=== PATIENT | female | born 1955 | race Caucasian/White ===

== ENCOUNTER → 2022-08-31 11:06 | Outpatient (CLI) | payer MEDICARE, OTHER, SELFPAY | PROVIDERS: Visit Provider Nurse Practitioner Family | DX: R30.0 Dysuria (principal) | CPT/HCPCS: 87086 ==

== ENCOUNTER 2022-08-31 11:29 | Emergency (ER) | payer MEDICARE, OTHER, SELFPAY ==
[2022-08-31] VITALS (15 sets, daily range): BP systolic 124–175; BP diastolic 56–77; PULSE 65–79; RESP 16–22; TEMP 36.4; O2SAT 95–99
[2022-08-31] MEDS: SODIUM CHLORIDE 0.9% 1,000 ML 1000 ML IV (11:42)
--- NOTE | 2022-08-31 11:42 | ED.GENADULT ---
HPI - General Adult General Chief complaint: Diabetic Problem Stated complaint: sent from [facility]/ uti/high blood sugars Time Seen by Provider: 08/31/22 11:30 Source: patient Mode of arrival: Wheelchair Limitations: no limitations History of Present Illness HPI narrative: 67-year-old female. Is a diabetic. Has not been on insulin for the past 8-9 months. She states she was on insulin prior to that however she was able to maintain her blood sugars and her A1c just based on diet. She is visiting the area. Over the past couple days she has generally not felt very well. She is been having urinary frequency which is her symptoms for urinary tract infection. She also forgot to bring her blood sugar monitor with her so she went to the walk-in clinic. She was subsequently sent to the emergency department secondary to leukocyte esterase in her urine and elevated blood sugars. She denies chest pain or shortness of breath. No abdominal pain. Related Data Previous Rx's Medication Instructions Recorded blood sugar diagnostic (Accu-Chek #50 ea 08/31/22 Fifi Plus test strips) blood-glucose meter (Accu-Chek #1 ea 08/31/22 Fifi Plus Meter) cephalexin 500 mg capsule 500 mg PO QID 5 days #20 caps 08/31/22 lancets #100 ea 08/31/22 vancomycin 250 mg capsule 500 mg PO QID 15 days #120 caps 08/31/22 Allergies Allergy/AdvReac Type Severity Reaction Status Date / Time CLINT Inhibitors Allergy Verified 08/31/22 11:59 ampicillin Allergy Verified 08/31/22 11:59 cefepime Allergy Verified 08/31/22 11:59 Penicillins Allergy Verified 08/31/22 11:59 Sulfa (Sulfonamide Allergy Verified 08/31/22 11:59 Antibiotics) vancomycin AdvReac Verified 08/31/22 11:59 Review of Systems Review of Systems ROS Unobtainable: All systems reviewed & are unremarkable except as noted in HPI and below Exam Initial Vital Signs Initial Vital Signs: Vital Signs Pulse Oximetry 95 08/31/22 11:34 Const General: cooperative, comfortable and No ill appearing HENNY Head: normal to inspection and normocephalic Resp Effort & Inspection: normal respiratory effort Auscultation: clear to auscultation bilaterally Cardio Rate: regular rate Skin Other: Bilateral [id number] amputations Neuro General: patient alert, patient awake, patient oriented x3 and moves all extremities Extrem General: normal to inspection and capillary refill normal Course Orders Ordered: ED Orders 08/31/22 11:39 Complete Blood Count AUTO DIFF Stat Comprehensive Metabolic Panel Stat Ketones (Beta-Hydroxybutyrate) Stat Lipase Stat Magnesium Stat Phosphorous Stat 08/31/22 11:49 Urine Microscopic Stat 08/31/22 12:27 VBG [Venous Blood Gas] Stat 08/31/22 14:14 BMP [Basic Metabolic Panel] Stat Discontinued Medications Cephalexin HCl (Cephalexin 250 Mg Capsule) 500 mg PO NOW ONE Stop: 08/31/22 13:28 Last Admin: 08/31/22 13:38 Dose: 500 mg Documented By: AT Sodium Chloride (Normal Saline 0.9%) 1,000 mls @ 1,000 mls/hr IV BOLUS ONE Stop: 08/31/22 12:30 Last Infusion: 08/31/22 12:39 Dose: 0 mls/hr Documented By: Admin: 08/31/22 11:42 Dose: 1,000 mls/hr Documented By: TACO Lactated Ringer's (Lactated Ringers) 1,000 mls @ 1,000 mls/hr IV BOLUS ONE Stop: 08/31/22 13:38 Last Infusion: 08/31/22 13:44 Dose: 0 mls/hr Documented By: Admin: 08/31/22 12:43 Dose: 1,000 mls/hr Documented By: AUTUMN Insulin Human Regular (Insulin Regular 100 Unit/Ml 3 Ml Vial) 10 unit IV NOW ONE Stop: 08/31/22 13:28 Last Admin: 08/31/22 13:37 Dose: 10 unit Documented By: AT Co-signed By: AUTUMN Vital Signs Vital signs: Vital Signs - 8 hr 08/31/22 11:38 08/31/22 11:34 08/31/22 11:35 Temperature 97.6 F Pulse Rate 70 Respiratory Rate 16 Blood Pressure 155/67 H 155/67 H Pulse Oximetry 99 95 Oxygen Delivery Method Room Air 08/31/22 11:35 08/31/22 12:00 08/31/22 12:01 Temperature Pulse Rate 74 77 73 Respiratory Rate 18 22 Blood Pressure Pulse Oximetry 96 95 95 Oxygen Delivery Method Room Air Room Air 08/31/22 12:01 08/31/22 12:30 08/31/22 12:31 Temperature Pulse Rate 69 72 Respiratory Rate Blood Pressure 155/67 H Pulse Oximetry 96 97 Oxygen Delivery Method Room Air 08/31/22 12:31 08/31/22 13:00 08/31/22 13:00 Temperature Pulse Rate 65 Respiratory Rate 18 Blood Pressure 156/69 H 147/66 H Pulse Oximetry 99 Oxygen Delivery Method Room Air 08/31/22 13:32 08/31/22 13:33 08/31/22 13:33 Temperature Pulse Rate 73 70 Respiratory Rate 18 Blood Pressure 170/75 H Pulse Oximetry 98 97 Oxygen Delivery Method Room Air 08/31/22 14:00 08/31/22 14:01 08/31/22 14:01 Temperature Pulse Rate 79 78 Respiratory Rate Blood Pressure 153/67 H Pulse Oximetry 99 98 Oxygen Delivery Method 08/31/22 14:30 08/31/22 14:30 08/31/22 15:00 Temperature Pulse Rate 77 67 Respiratory Rate Blood Pressure 175/77 H Pulse Oximetry 98 98 Oxygen Delivery Method 08/31/22 15:01 08/31/22 15:01 Temperature Pulse Rate 67 Respiratory Rate 16 Blood Pressure 124/56 L Pulse Oximetry 97 Oxygen Delivery Method Room Air Medical Decision Making Lab Data 08/31/22 11:39 08/31/22 14:14 Labs: Lab Results 08/31/22 08/31/22 08/31/22 Range/Units 11:39 11:39 11:39 WBC 8.3 (4.5-11.0) X10^3/uL RBC 3.65 L (4.0-5.2) X10^6/uL Hgb 10.6 L (12.0-16.0) g/dL Hct 32.2 L (36-46) % MCV 88.2 (80-100) fL MCH 29.0 (26-34) PG MCHC 32.9 (30-36) % RDW 14.7 (11.6-14.8) % Plt Count 330 (150-400) X10^3/uL Neut % (Auto) 80.3 H (50-75) % Lymph % (Auto) 5.6 L (25-40) % [place] % (Auto) 8.1 (3-14) % Eos % (Auto) 5.3 H (2-4) % Baso % (Auto) 0.7 (0-2) % Neut # (Auto) 6600 (0443-7414) /uL Lymph # (Auto) 500 L (0214-9934) /uL [place] # (Auto) 700 (0-900) /uL Eos # (Auto) 400 (0-450) /uL Baso # (Auto) 100 (0-100) /uL VBG pH (7.33-7.43) VBG pCO2 (45-50) mmHg VBG pO2 (35-45) mmHg VBG HCO3 (24-28) mmol/L VBG Total CO2 (24-29) mmol/L VBG O2 Saturation (70-75) % VBG Base Excess (0-4) mmol/L FiO2 Sodium 128 L (137-145) mmol/L Potassium 5.9 H (3.4-5.1) mmol/L Chloride 99 (98-107) mmol/L Carbon Dioxide 15 L (22-32) mmol/L BUN 52 H (7-17) mg/dL Creatinine 2.11 H (0.52-1.04) mg/dL Estimated GFR 25 L (>60) mL/min BUN/Creatinine Ratio 24.6 H (6-22) Glucose 718 H* (80-110) mg/dL Calcium 9.1 (8.4-10.2) mg/dL Phosphorus 4.5 H (2.8-4.1) mg/dL Magnesium 2.6 H (1.6-2.3) mg/dL Total Bilirubin 0.6 (0.2-1.3) mg/dL AST 26 (14-36) IU/L ALT 27 (<35) IU/L Alkaline Phosphatase 140 H (38-126) U/L Total Protein 6.4 (6.3-8.2) g/dL Albumin 3.9 (3.5-5.0) g/dL Globulin 2.5 (1.7-4.1) g/dL Albumin/Globulin Ratio 1.6 (1.0-2.8) Lipase 4500 H (23-300) U/L Urine RBC (0-5/HPF) Urine WBC (0-5/HPF) Ur Squamous Epith Cells (0-5/HPF) Urine Bacteria (None) Ur Culture Indicated? Ketones (<0.27) mmol/L 0608/31/22 08/31/22 Range/Units 11:39 11:49 12:27 WBC (4.5-11.0) X10^3/uL RBC (4.0-5.2) X10^6/uL Hgb (12.0-16.0) g/dL Hct (36-46) % MCV (80-100) fL MCH (26-34) PG MCHC (30-36) % RDW (11.6-14.8) % Plt Count (150-400) X10^3/uL Neut % (Auto) (50-75) % Lymph % (Auto) (25-40) % [place] % (Auto) (3-14) % Eos % (Auto) (2-4) % Baso % (Auto) (0-2) % Neut # (Auto) (3237-7622) /uL Lymph # (Auto) (6457-9454) /uL [place] # (Auto) (0-900) /uL Eos # (Auto) (0-450) /uL Baso # (Auto) (0-100) /uL VBG pH 7.36 (7.33-7.43) VBG pCO2 28.6 L (45-50) mmHg VBG pO2 55 H (35-45) mmHg VBG HCO3 16 L (24-28) mmol/L VBG Total CO2 17 L (24-29) mmol/L VBG O2 Saturation 88 H (70-75) % VBG Base Excess -9.0 L (0-4) mmol/L FiO2 20 Sodium (137-145) mmol/L Potassium (3.4-5.1) mmol/L Chloride (98-107) mmol/L Carbon Dioxide (22-32) mmol/L BUN (7-17) mg/dL Creatinine (0.52-1.04) mg/dL Estimated GFR (>60) mL/min BUN/Creatinine Ratio (6-22) Glucose (80-110) mg/dL Calcium (8.4-10.2) mg/dL Phosphorus (2.8-4.1) mg/dL Magnesium (1.6-2.3) mg/dL Total Bilirubin (0.2-1.3) mg/dL AST (14-36) IU/L ALT (<35) IU/L Alkaline Phosphatase (38-126) U/L Total Protein (6.3-8.2) g/dL Albumin (3.5-5.0) g/dL Globulin (1.7-4.1) g/dL Albumin/Globulin Ratio (1.0-2.8) Lipase (23-300) U/L Urine RBC 1-5/hpf (0-5/HPF) Urine WBC 10-30/hpf H (0-5/HPF) Ur Squamous Epith Cells 1-5 /hpf (0-5/HPF) Urine Bacteria Moderate (10-30) H (None) Ur Culture Indicated? TNP Ketones 0.63 H (<0.27) mmol/L 08/31/22 Range/Units 14:14 WBC (4.5-11.0) X10^3/uL RBC (4.0-5.2) X10^6/uL Hgb (12.0-16.0) g/dL Hct (36-46) % MCV (80-100) fL MCH (26-34) PG MCHC (30-36) % RDW (11.6-14.8) % Plt Count (150-400) X10^3/uL Neut % (Auto) (50-75) % Lymph % (Auto) (25-40) % [place] % (Auto) (3-14) % Eos % (Auto) (2-4) % Baso % (Auto) (0-2) % Neut # (Auto) (8449-3061) /uL Lymph # (Auto) (1777-1324) /uL [place] # (Auto) (0-900) /uL Eos # (Auto) (0-450) /uL Baso # (Auto) (0-100) /uL VBG pH (7.33-7.43) VBG pCO2 (45-50) mmHg VBG pO2 (35-45) mmHg VBG HCO3 (24-28) mmol/L VBG Total CO2 (24-29) mmol/L VBG O2 Saturation (70-75) % VBG Base Excess (0-4) mmol/L FiO2 Sodium 131 L (137-145) mmol/L Potassium 5.0 (3.4-5.1) mmol/L Chloride 104 (98-107) mmol/L Carbon Dioxide 18 L (22-32) mmol/L BUN 47 H (7-17) mg/dL Creatinine 1.85 H (0.52-1.04) mg/dL Estimated GFR 30 L (>60) mL/min BUN/Creatinine Ratio 25.4 H (6-22) Glucose 545 H* (80-110) mg/dL Calcium 8.5 (8.4-10.2) mg/dL Phosphorus (2.8-4.1) mg/dL Magnesium (1.6-2.3) mg/dL Total Bilirubin (0.2-1.3) mg/dL AST (14-36) IU/L ALT (<35) IU/L Alkaline Phosphatase (38-126) U/L Total Protein (6.3-8.2) g/dL Albumin (3.5-5.0) g/dL Globulin (1.7-4.1) g/dL Albumin/Globulin Ratio (1.0-2.8) Lipase (23-300) U/L Urine RBC (0-5/HPF) Urine WBC (0-5/HPF) Ur Squamous Epith Cells (0-5/HPF) Urine Bacteria (None) Ur Culture Indicated? Ketones (<0.27) mmol/L MDM Narrative Medical decision making narrative: Patient does have leukocyte esterase and white blood cells and bacteria in her urine. She is also having urinary frequency. She states that with her history this is consistent with prior urinary tract infections. She is multiple medication allergies. She states that Keflex has worked for her in the past. She was given a dose of Keflex here in the ER and has tolerated that without issue. Will send home with a prescription for Keflex. She also states that every time that she takes antibiotics she gets C diff. Her doctors have told her that if she ever is on antibiotics that she also needs to be on vancomycin. She can tolerate oral vancomycin. She states that she takes 250 mg 4 times a day during the course of treatment of the antibiotics and for 10 days afterwards. This will be prescribed to her as well. She is a diabetic. Has been insulin-dependent in the past but now seems to be diet controlled she is not been on insulin for the past several months. Patient is hyperglycemic today. Patient is not acidotic on VBG. Patient does have ketones. I suspect that her hyperglycemia is most likely related to her infection, lack of insulin and also the change in diet she is visiting the area here. She is tolerating oral intake. Received fluids. She states that her baseline creatinine is 2.0. His initially 2.1 and improved to 1.8 after fluids. Patient does have insulin with her but does not have a way of checking her insulin. Prescriptions for a glucose monitor was sent to the pharmacy of her choice. It is a short-acting insulin that she has and she will use her prior sliding scale. I did advise that she check her blood sugar often. When she returns home she can contact her primary doctor for follow-up. She was given return precautions. She expressed understanding and agreement with plan. Discharge Plan Departure Patient Disposition: Home Clinical Impression: Urinary tract infection, Hyperglycemia Instructions: DI for Urinary Tract Infection (UTI), DI for Hyperglycemia -- Adult Activity Restrictions/Additional Instructions: I do recommend that you continue to take all of your medications as directed. It is important that you increase your fluid intake and check your blood sugar often. Return to the emergency department for new or worsening symptoms. Prescriptions: New cephalexin 500 mg capsule 500 mg PO QID 5 Days Qty: 20 0RF vancomycin 250 mg capsule 500 mg PO QID 15 Days Qty: 120 0RF (DME) blood-glucose meter [Accu-Chek Fifi Plus Meter] Misc See Rx Instructions .Route Qty: 1 0RF Rx Instructions: As directed (DME) Accu-Chek Fifi Plus test strp Strip See Rx Instructions .Route Qty: 50 0RF Rx Instructions: As directed (DME) lancets Misc See Rx Instructions .Route Qty: 100 0RF Rx Instructions: As directed Referrals: Macario,MD Millicent [Primary Care Provider] - Stand Alone Forms: Patient Portal/API
[2022-08-31 11:50] LABS: Add Manual Diff / Slide Review NO; Basophils Absolute Auto 100 /uL (0-100); Basophils Percent Auto 0.7 % (0-2); Eosinophils Absolute Auto 400 /uL (0-450); Eosinophils Percent Auto 5.3 % (2-4); Hematocrit 32.2 % (36-46); Hemoglobin 10.6 g/dL (12.0-16.0); Lymphocytes Absolute Auto 500 /uL (1100-4500); Lymphocytes Percent Auto 5.6 % (25-40); Mean Corpuscular HGB Conc 32.9 % (30-36); Mean Corpuscular Volume 88.2 fL (80-100); Monocytes Absolute Auto 700 /uL (0-900); Monocytes Percent Auto 8.1 % (3-14); Neutrophils Absolute Auto 6600 /uL (1500-7000); Neutrophils Percent Auto 80.3 % (50-75); Platelet Count 330 X10^3/uL (150-400); Red Blood Cell Count 3.65 X10^6/uL (4.0-5.2); Red Cell Distribution Width 14.7 % (11.6-14.8); White Blood Cell Count 8.3 X10^3/uL (4.5-11.0)
[2022-08-31 12:01] LABS: Magnesium 2.6 mg/dL (1.6-2.3); Phosphorous 4.5 mg/dL (2.8-4.1)
[2022-08-31 12:02] LABS: Alanine Aminotransferase 27 IU/L (<35); Albumin 3.9 g/dL (3.5-5.0); Albumin Globulin Ratio 1.6 (1.0-2.8); Alkaline Phosphatase 140 U/L (38-126); Aspartate Aminotransferase 26 IU/L (14-36); BUN Creatinine Ratio 24.6 (6-22); Bilirubin Total 0.6 mg/dL (0.2-1.3); Blood Urea Nitrogen 52 mg/dL (7-17); Calcium 9.1 mg/dL (8.4-10.2); Carbon Dioxide 15 mmol/L (22-32); Chloride 99 mmol/L (98-107); Estimated Glomerular Filt Rate 25 mL/min (>60); Globulin 2.5 g/dL (1.7-4.1); Sodium 128 mmol/L (137-145); Total Protein 6.4 g/dL (6.3-8.2)
[2022-08-31 12:04] LABS: Bacteria Urine Moderate (10-30); RBC Urine 1-5/HPF (0-5/HPF); Squamous Epithelial Cell Urine 1-5 /HPF (0-5/HPF); WBC Urine 10-30/HPF (0-5/HPF)
[2022-08-31 12:07] LABS: Ketones (Beta-Hydroxybutyrate) 0.63 mmol/L (<0.27)
[2022-08-31 12:11] LABS: HEMOLYSIS 16 (0-50)
[2022-08-31 12:12] LABS: Potassium 5.9 mmol/L (3.4-5.1)
[2022-08-31 12:13] LABS: Glucose 718 mg/dL (80-110)
[2022-08-31 12:19] LABS: Lipase 4500 U/L (23-300)
[2022-08-31] MEDS: LACTATED RINGERS 1,000 ML 1000 ML IV (12:43)
[2022-08-31] MEDS: INSULIN REGULAR 100 UNIT/ML 3 ML VIAL 10 UNIT IV (13:37)
[2022-08-31] MEDS: cephALEXin 250 MG CAPSULE 500 MG PO (13:38)
[2022-08-31 13:59] LABS: Fractionated Inspired Oxygen 20; HCO3 VBG 16 mmol/L (24-28); Oxygen Saturation VBG 88 % (70-75); PCO2 VBG 28.6 mmHg (45-50); PO2 VBG 55 mmHg (35-45); Total CO2 VBG 17 mmol/L (24-29)
[2022-08-31 14:00] LABS: pH VBG 7.36 (7.33-7.43)
[2022-08-31 14:35] LABS: BUN Creatinine Ratio 25.4 (6-22); Blood Urea Nitrogen 47 mg/dL (7-17); Calcium 8.5 mg/dL (8.4-10.2); Carbon Dioxide 18 mmol/L (22-32); Chloride 104 mmol/L (98-107); Estimated Glomerular Filt Rate 30 mL/min (>60); HEMOLYSIS < 15 (0-50); Sodium 131 mmol/L (137-145)
[2022-08-31 14:37] LABS: Glucose 545 mg/dL (80-110)
== END 2022-08-31 15:21 | disposition home or self-care (01) ==
PROVIDERS: Emergency Provider Emergency Medicine
DX: N39.0 Urinary tract infection, site not specified (principal); E11.65 Type 2 diabetes mellitus with hyperglycemia; R30.0 Dysuria
CPT/HCPCS: 36415; 80048; 80053; 81015; 82009; 82805; 83690; 83735; 84100; 85025; 87077; 87086; 87186; 96374; 99284